=== PATIENT | female | born 1985 | race Caucasian/White ===

== ENCOUNTER → 2018-11-02 | Outpatient (CLI) | payer OTHER ==
[2018-11-02 16:46] LABS: BASO # 0.1 10^3/uL (0.0-0.2); BASO % 0.6 % (0.0-1.0); EOS # 0.1 10^3/uL (0.0-0.50); EOS % 1.2 % (0.0-3.0); HEMATOCRIT 42.5 % (36.0-47.0); HEMOGLOBIN 14.2 g/dl (12.0-15.5); LYMPH # 2.5 10^3/uL (1.5-4.5); LYMPH % 25.7 % (24.0-44.0); MEAN CORPUSCULAR HEMOGLOBIN 29.4 pg (27.0-33.0); MEAN CORPUSCULAR HGB CONC 33.4 g/dl (32.0-36.5); MONO # 0.7 10^3/uL (0.0-0.8); MONO % 6.6 % (0.0-5.0); NEUTROPHILS # 6.5 10^3/uL (1.8-7.7); NEUTROPHILS % 65.6 % (36.0-66.0); PLATELET COUNT, AUTOMATED 280 10^3/uL (150-450); RED BLOOD COUNT 4.83 10^6/uL (4.00-5.40); WHITE BLOOD COUNT 9.9 10^3/uL (4.0-10.0)
[2018-11-02 17:15] LABS: ALBUMIN 4.1 GM/DL (3.2-5.2); ALT/SGPT 33 U/L (12-78); BILIRUBIN,TOTAL 0.7 MG/DL (0.2-1.0); BLOOD UREA NITROGEN 9 MG/DL (7-18); CALCIUM LEVEL 8.5 MG/DL (8.5-10.1); CARBON DIOXIDE LEVEL 27 MEQ/L (21-32); CHLORIDE LEVEL 107 MEQ/L (98-107); CHOLESTEROL LEVEL 130 MG/DL (<200); CHOLESTEROL RISK RATIO 2.954 (<5); CREATININE FOR GFR 0.63 MG/DL (0.55-1.30); FREE T4 1.23 NG/DL (0.76-1.46); GLOMERULAR FILTRATION RATE > 60.0 (>60); GLUCOSE, FASTING 71 MG/DL (70-100); HDL CHOLESTEROL 44 MG/DL (>40); LDL CHOLESTEROL 68 MG/DL (<100); NON-HDL-C 86 MG/DL; POTASSIUM SERUM 4.1 MEQ/L (3.5-5.1); SODIUM LEVEL 141 MEQ/L (136-145); THYROID STIMULATING HORMONE 0.313 uIU/ML (0.358-3.740); TOTAL 25(OH) VITAMIN D 25.7 NG/ML (30.0-100.0); TRIGLYCERIDES LEVEL 88 MG/DL (<150)
== END ==
LOC: M WUC 11:51
PROVIDERS: ATTEND Physician Assistant
DX: J30.9 Allergic rhinitis, unspecified (principal); Z13.220 Encounter for screening for lipoid disorders; E03.9 Hypothyroidism, unspecified

== ENCOUNTER → 2019-05-15 | Outpatient (REF) | payer OTHER | LOC: M SFHCSACK 09:45 | PROVIDERS: ATTEND Physician Assistant | DX: J30.9 Allergic rhinitis, unspecified (principal); E03.9 Hypothyroidism, unspecified; E55.9 Vitamin D deficiency, unspecified; Z53.9 Procedure and treatment not carried out, unspecified reason ==

== ENCOUNTER → 2021-02-15 | Outpatient (CLI) | payer OTHER ==
--- NOTE | 2021-02-15 22:18 | REP ---
INDICATION: LIPOMA ON BUTTOCKS COMPARISON: None TECHNIQUE: Real time velarde scale and color B-mode ultrasound examination using curved array and linear high-frequency transducers. FINDINGS: Directed ultrasound examination of the left gluteal region demonstrates a 7.0 x 3.1 x 6.8 cm ovoid hyperechoic lesion consistent with lipoma. IMPRESSION: Findings consistent with lipoma by ultrasound. <Electronically signed by Smith Rosario > 02/15/21 [id number]
== END ==
LOC: M RAD 14:22
PROVIDERS: ATTEND Family Medicine
DX: D48.1 Neoplasm of uncertain behavior of connective and other soft tissue (principal)

== ENCOUNTER → 2021-03-28 | Outpatient (CLI) | payer OTHER ==
[~2021-03-28] MED LIST: ALL10TAB3 PO; COLA100C5 PO; D31000TA2 PO; LEVO125T4 PO; MIRE1IUD IU
== END ==
LOC: M LABSMTC 10:41
PROVIDERS: ATTEND Anesthesiology
DX: Z01.812 Encounter for preprocedural laboratory examination (principal); Z20.822 Contact with and (suspected) exposure to COVID-19

== ENCOUNTER 2021-04-02 08:02 | Day surgery (SDC) | payer OTHER ==
[~2021-04-02] VITALS: Ht 160 cm; Wt 102.0 kg
[~2021-04-02 08:02] MED LIST changes: +LIDOCAINE 1% MDV 20ML VIAL SQ PRN; +ceFAZolin SOD 2 GM in IV 1 EA IV ONE
[2021-04-02] MEDS ORDERED: LIDOCAINE W/EPINEPHRINE 1% 20ML VIAL As Ordered ONE (08:39)
[2021-04-02] MEDS ORDERED: LIDOCAINE 2% 100MG/5ML SDV (FOR ANES.) As Ordered ONE (08:45)
[2021-04-02] MEDS ORDERED: propofoL 200 MG/20 ML VIAL As Ordered ONE (08:45)
[2021-04-02] MEDS ORDERED: fentaNYL 100 MCG/2 ML INJECTION (J3010) As Ordered ONE ×2 (08:46→09:35)
[2021-04-02] MEDS ORDERED: MIDAZOLAM INJ 2MG/2ML VIAL (J2250 PER 1MG) As Ordered ONE (08:46)
[2021-04-02 11:43] VITALS: BP 119/64
--- NOTE | 2021-04-02 11:43 | RO ---
OPERATIVE NOTE DATE OF OPERATION: 04/02/2021 PREOPERATIVE DIAGNOSES: 1. Large external hemorrhoid. 2. Left buttock lipoma. POSTOPERATIVE DIAGNOSES: 1. Large external hemorrhoid. 2. Left buttock lipoma. PROCEDURES: 1. Excision of left buttock lipoma. 2. Excision of large left external hemorrhoid. SURGEON: Wayne Salcido DO OIL EXTRACTOR: None. ANESTHESIA: IV sedation with local. ESTIMATED BLOOD LOSS: 5 mL. COMPLICATIONS: None. INDICATIONS FOR PROCEDURE: The patient is a 36-year-old female who presents with pain to the left buttock and was found to have a large lipoma. She also has a large pedunculated hemorrhoid that is making it difficult for her clean herself. The recommendation was to proceed with excision of both. Risks and benefits of the procedure, not limited to, but including bleeding, infection, damage to surrounding structures, seroma, and need for further surgery were discussed in detail with the patient. Informed consent was obtained and the procedure was planned. DESCRIPTION OF PROCEDURE: The patient was brought back to operating room #1. After successful sedation, she was placed in the right lateral decubitus position. Next, the left buttock and perianal area was sterilely prepped and draped with Betadine. Next, a time-out was done to confirm the proper patient and proper procedure. Following that, local was injected into the skin and subcutaneous tissue surrounding the base of the hemorrhoid as well over the skin over the lipoma on the left buttock. Next, the 15-blade scalpel was used to make a linear incision over the lipoma. Blunt dissection was then used to carefully bluntly dissect all of the loculations around the capsule of the lipoma. The lipoma was then removed in one large chunk measuring about 12 x 8 cm. Once that was completed, the subcutaneous tissues were brought together with interrupted 3-0 Vicryl sutures followed by interrupted 2-0 nylon sutures to approximate the skin edges. Once that was completed, the hemorrhoid was elevated up in the air. The base was transected using a 15-blade scalpel. The skin at the base was then reapproximated with a running 3-0 chromic suture. Once that was completed, the area was all cleaned and dried and 4x4 and tape were applied, thus ending the procedure.
== END 2021-04-02 11:47 | disposition home or self-care (01) ==
LOC: M SDC 08:02
PROVIDERS: ATTEND Surgery
DX: K64.1 Second degree hemorrhoids (principal); D17.79 Benign lipomatous neoplasm of other sites; E03.9 Hypothyroidism, unspecified; K58.9 Irritable bowel syndrome, unspecified; L40.9 Psoriasis, unspecified; G43.909 Migraine, unspecified, not intractable, without status migrainosus; F32.9 Major depressive disorder, single episode, unspecified; F41.9 Anxiety disorder, unspecified; Z88.5 Allergy status to narcotic agent; Z79.899 Other long term (current) drug therapy
CPT/HCPCS: 27043; 46255; 81025; 88304; J2250; J3010